=== PATIENT | male | born 1985 | race Caucasian/White ===

== ENCOUNTER 2020-09-12 16:47 | Emergency (ER) | payer MEDICAID, SELFPAY ==
[2020-09-12 16:56] VITALS: BP 121/84; PULSE 97; RESP 18; TEMP 36.7; O2SAT 95; BMI 25.8
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
[2020-09-12 17:30] VITALS: RESP 15; O2SAT 95
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
[2020-09-12 18:03] VITALS: RESP 15; O2SAT 95
== END 2020-09-12 18:03 | disposition home or self-care (01) ==
PROVIDERS: Emergency Provider Family Medicine
DX: S01.81XA Laceration without foreign body of other part of head, initial encounter (principal); F17.210 Nicotine dependence, cigarettes, uncomplicated; V89.2XXA Person injured in unspecified motor-vehicle accident, traffic, initial encounter
CPT/HCPCS: 70450; 72125; 99283

== ENCOUNTER 2021-01-27 13:00 | Outpatient (CLI) | payer MEDICAID, SELFPAY ==
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
== END 2021-01-27 13:01 | disposition home or self-care (01) ==
LOC: RADSHAW 13:04
PROVIDERS: PCP Family Medicine; Visit Provider Family Medicine
DX: V89.2XXS Person injured in unspecified motor-vehicle accident, traffic, sequela (principal); G43.909 Migraine, unspecified, not intractable, without status migrainosus; G44.309 Post-traumatic headache, unspecified, not intractable; J32.9 Chronic sinusitis, unspecified
CPT/HCPCS: 70551

== ENCOUNTER 2021-05-09 10:40 | Outpatient (CLI) | payer MEDICAID, SELFPAY ==
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
== END 2021-05-09 10:41 | disposition home or self-care (01) ==
LOC: RADSHAW 10:47
PROVIDERS: PCP Family Medicine; Visit Provider Family Medicine
DX: R20.2 Paresthesia of skin (principal); M54.2 Cervicalgia
CPT/HCPCS: 72141